=== PATIENT | female | born 2000 | race African-American/Black ===

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

== ENCOUNTER 2019-05-22 03:53 | Emergency (ER) | payer OTHER ==
[2019-05-22] MEDS ORDERED: Sodium Chloride 0.9% 1,000 ML ONE ×2 (04:18→04:52)
[2019-05-22 05:53] LABS: #Basophils 0.1 thou/uL (0.0-0.2); #Eosinphils 0.2 thou/uL (0.0-0.7); #Lymphocytes 2.4 thou/uL (1.20-3.40); #Monocytes 0.7 thou/uL (0.11-0.59); #Neutrophils 6.8 thou/uL (1.40-6.50); %Basophils 0.6 % (0.0-1.0); %Eosinophils 2.1 % (0.0-10.0); %Lymphocytes 23.5 % (28.0-48.0); %Monocytes 7.2 % (0.0-4.0); %Neutrophils 66.6 % (31.0-61.0); Hemoglobin 10.4 g/dL (12.0-16.0); Mean Corpuscular HGB CONC 30.7 g/dL (32.0-36.0); Mean Corpuscular Hemoglobin 27.1 pg (25.0-35.0); Mean Corpuscular Volume 88.2 fL (78.0-98.0); Mean Platelet Volume 9.3 fL (7.4-10.4); Platelet Count 225 thou/uL (130-400); RBC Distribution Width 12.3 % (11.5-14.5); Red Blood Cell (RBC) Count 3.84 mill/uL (4.00-5.20); White Blood Cell (WBC) Count 10.2 thou/uL (4.8-10.8)
[2019-05-22 11:45] LABS: HBSAB Concentration 0.99 mIU/mL; Hep B Surf AB Non-Reactive (NonReactive)
[2019-05-22 11:51] LABS: Syphilis Antibody Nonreactive (Nonreactive); Syphilis Antibody Index 0.04 S/CO (<1.00 Non-Reactive)
== END 2019-05-22 05:15 | disposition home or self-care (01) ==
LOC: MADERS 03:53
DX: O60.03 Preterm labor without delivery, third trimester (principal); O99.353 Diseases of the nervous system complicating pregnancy, third trimester; G43.909 Migraine, unspecified, not intractable, without status migrainosus; O99.343 Other mental disorders complicating pregnancy, third trimester; F41.9 Anxiety disorder, unspecified; F32.9 Major depressive disorder, single episode, unspecified; Z3A.32 32 weeks gestation of pregnancy
CPT/HCPCS: 85025; 86706; 86780; 86850; 86870; 86900; 86901; 96360; J7050

== ENCOUNTER 2019-11-04 07:00 | Emergency (ER) | payer OTHER ==
--- NOTE | 2019-11-04 08:07 | RAD ---
EXAM: XR Ankle Lt 3 View STANDARD PROVIDED CLINICAL HISTORY: Pain FINDINGS: There is no evidence for fracture or other acute osseous abnormality. Alignment appears anatomic. Jania nt spaces appear preserved. IMPRESSION: No evidence for an acute osseous abnormality. If there is persistent clinical concern, conservative m anagement and follow-up imaging advised.
== END 2019-11-04 08:15 | disposition home or self-care (01) ==
LOC: MADERS 07:00
DX: S93.402A Sprain of unspecified ligament of left ankle, initial encounter (principal); F41.9 Anxiety disorder, unspecified; F32.9 Major depressive disorder, single episode, unspecified; F17.210 Nicotine dependence, cigarettes, uncomplicated; G43.909 Migraine, unspecified, not intractable, without status migrainosus; W51.XXXA Accidental striking against or bumped into by another person, initial encounter

== ENCOUNTER 2020-08-19 09:19 | Emergency (ER) | payer OTHER, SELFPAY ==
[2020-08-19 09:45] LABS: Bilirubin Negative (Negative); Blood, Urine Large (Negative); Glucose, Urine (Dipstick) Negative (Negative); Ketone, Urine Negative (Negative); Leukocyte Large (Negative); Nitrite Positive (Negative); Protein, Urine (Dipstick) 100 mg/dL (Neg-Trace); Urobilinogen 0.2 mg/dL (Less than 2)
[2020-08-19 10:01] LABS: Clarity Cloudy (Clear)
[2020-08-19 10:02] LABS: Bacteria/HPF 2+ HPF (None Seen); Specific Gravity, Urine 1.032 (1.002-1.036); Squamous Epithelial 0-3 HPF (0-3); WBC/HPF Greater Than 50 HPF (0-3); Yeast-Budding 1+ HPF (None Seen)
[2020-08-19 10:03] LABS: Pregnancy Test - Urine (BHCG) Negative (Negative); Pregu Control Background? CLEAR/WHITE (CLR/WHITE); Specific Gravity 1.032 (1.002-1.036)
[2020-08-19 10:06] LABS: Pregu Control Bar Appear? YES (CONTROL BAR)
== END 2020-08-19 10:27 | disposition home or self-care (01) ==
LOC: MADERS 09:19
DX: S46.912A Strain of unspecified muscle, fascia and tendon at shoulder and upper arm level, left arm, initial encounter (principal); N30.01 Acute cystitis with hematuria; F17.210 Nicotine dependence, cigarettes, uncomplicated; X58.XXXA Exposure to other specified factors, initial encounter
CPT/HCPCS: 81003; 81015; 81025; 99283